=== PATIENT | male | born 1975 | race Two or more races ===

== ENCOUNTER 2018-07-27 15:38 | Outpatient (CLI) | payer OTHER ==
[2018-07-27] MEDS ORDERED: VITA400C43 PO (16:37)
[2018-07-27] MEDS ORDERED: MULT-658 PO (16:37)
[2018-07-27] MEDS ORDERED: FISH1CAP PO (16:37)
[2018-07-27] MEDS ORDERED: CYAN1TAB29 PO (16:37)
[2018-07-27] MEDS ORDERED: LISI-167 PO (16:37)
[2018-07-27] MEDS ORDERED: ASCO500T8 PO (16:37)
[2018-07-27] MEDS ORDERED: CHOL500015 PO (16:37)
[2018-07-27] MEDS ORDERED: ATOR20TA37 PO (16:37)
== END 2018-07-27 23:59 | disposition home or self-care (01) ==
LOC: STAR 15:38
PROVIDERS: ATTEND Orthopaedic Surgery
DX: Z02.9 Encounter for administrative examinations, unspecified (principal)

== ENCOUNTER 2018-08-08 07:55 | Day surgery (SDC) | payer OTHER ==
[~2018-08-08] VITALS: Ht 170.2 cm; Wt 79.0 kg
[~2018-08-08 07:55] MED LIST: ASCO500T8 PO; ATOR20TA37 PO; BACITRACIN 50,000 UNIT ONE; CHOL500015 PO; CYAN1TAB29 PO; EPINEPHRINE 1 MG/ML, 1ML ONE; FISH1CAP PO; KETOROLAC 60 MG/2 ML ONE; LISI-167 PO; MULT-658 PO; ROPIvacaine/PF 0.2%, 20 ML ONE; SODIUM CHLORIDE 0.9% 0 ML ONE; TRANEXAMIC ACID 100 MG/ML, 10ML ONE; VITA400C43 PO; morphine SULFATE/PF 1 MG/ML, 10ML ONE
[2018-08-08] MEDS ORDERED: MIDAZOLAM 1 MG/ML, 2ML ONE (08:02)
[2018-08-08] MEDS ORDERED: FENTANYL PF 250 MCG/5ML ONE (08:02)
[2018-08-08] MEDS ORDERED: LACTATED RINGERS 1,000 ML IV SCH (08:03)
[2018-08-08] MEDS ORDERED: PROPOFOL 10 MG/ML, 20ML ONE (08:03)
[2018-08-08] MEDS ORDERED: CEFAZOLIN 1,000 MG ONE ×2 (08:04)
[2018-08-08] MEDS ORDERED: SODIUM CHLORIDE 0.9% PF 10ML ONE (08:04)
[2018-08-08 08:35] VITALS: BP 149/83
[2018-08-08] MEDS ORDERED: BUPIVACAINE/PF-EPI 0.5% 1:200K ONE (09:40)
[2018-08-08] MEDS ORDERED: EPINEPHRINE 1 MG/ML, 1ML ONE (09:40)
[2018-08-08] MEDS ORDERED: ONDANSETRON ODT 8 MG PO PRN (10:00)
[2018-08-08] MEDS ORDERED: OXYcodone 5 MG/5 ML ORAL.SOL UDC PO PRN (10:00)
[2018-08-08] MEDS ORDERED: MORPHINE SULFATE 4 MG/ML, 1ML IVPush PRN (10:00)
[2018-08-08] MEDS ORDERED: hydrALAzine 20 MG/ML, 1ML IV PRN (10:00)
[2018-08-08] MEDS ORDERED: PROMETHAZINE 25 MG/ML, 1ML IM PRN ×2 (10:00)
[2018-08-08] MEDS ORDERED: PROMETHAZINE 12.5 MG SUPP PR PRN (10:00)
[2018-08-08] MEDS ORDERED: PROMETHAZINE 25 MG SUPP PR PRN (10:00)
[2018-08-08] MEDS ORDERED: ONDANSETRON 2MG/ML, 2ML IV PRN (10:00)
[2018-08-08] MEDS ORDERED: HYDROmorphone 2 MG/ML, 1ML IVPush PRN (10:00)
[2018-08-08] MEDS ORDERED: FENTANYL PF 100 MCG/2ML IV PRN (10:00)
[2018-08-08] MEDS ORDERED: LABETALOL 5MG/ML, 20ML IV PRN (10:00)
[2018-08-08] MEDS ORDERED: PROMETHAZINE 25 MG/ML, 1ML IV PRN (10:00)
[2018-08-08] MEDS ORDERED: MEPERIDINE/PF 25MG/0.5ML IVPush PRN (10:00)
[2018-08-08] MEDS ORDERED: ACETAMINOPHEN 325 MG TABLET PO PRN (10:00)
[2018-08-08] MEDS ORDERED: HYDROcodone/APAP 5/325 TABLET PO PRN (10:30)
[2018-08-08] MEDS ORDERED: ONDANSETRON 2MG/ML, 2ML IVPush PRN (10:30)
[2018-08-08] MEDS ORDERED: MEPERIDINE/PF 25MG/ML,1ML ONE (10:48)
[2018-08-08] MEDS ORDERED: ACETAMINOPHEN 650 MG/20.3 ML UDC ONE (11:09)
[2018-08-08] MEDS ORDERED: OXYcodone 5 MG/5 ML ORAL.SOL UDC ONE (11:09)
== END 2018-08-08 12:58 | disposition home or self-care (01) ==
LOC: OUT 07:55 → ORIP 10:06 → UNDOADMOB 10:06 → OUT 12:58
PROVIDERS: ATTEND Orthopaedic Surgery
DX: S83.232A Complex tear of medial meniscus, current injury, left knee, initial encounter (principal); S83.282A Other tear of lateral meniscus, current injury, left knee, initial encounter; M10.061 Idiopathic gout, right knee; M94.262 Chondromalacia, left knee; M10.062 Idiopathic gout, left knee; I10 Essential (primary) hypertension; E78.5 Hyperlipidemia, unspecified; Z79.891 Long term (current) use of opiate analgesic; Z79.899 Other long term (current) drug therapy; X58.XXXA Exposure to other specified factors, initial encounter; Y93.89 Activity, other specified; Y92.89 Other specified places as the place of occurrence of the external cause; Y99.8 Other external cause status
CPT/HCPCS: 20610; 29880; 87015; 87070; 87075; 87116; 87205; 87206; 89051; J0171; J0690; J2175; J2250; J2704; J2795; J3010; J7120; J1885; J2274